=== PATIENT | male | born 1965 | race Caucasian/White ===

== ENCOUNTER 2020-11-11 09:15 | Outpatient (CLI) | payer BC | END 2020-11-11 09:16 | disposition home or self-care (01) | LOC: CSHMRI 09:15 | PROVIDERS: ATTEND Otolaryngology Plastic Surgery within the Head & Neck | DX: H91.21 Sudden idiopathic hearing loss, right ear (principal); G51.9 Disorder of facial nerve, unspecified | CPT/HCPCS: 70553 ==

== ENCOUNTER 2022-10-29 09:53 | Outpatient (CLI) | payer BC ==
[2022-10-29] MEDS ORDERED: Iopamidol 370 76% 100 ML VIAL ONE (15:20)
== END 2022-10-29 09:54 | disposition home or self-care (01) ==
LOC: CSHCT 09:53
PROVIDERS: ATTEND Nurse Practitioner Family
DX: R10.32 Left lower quadrant pain (principal); K57.30 Diverticulosis of large intestine without perforation or abscess without bleeding; N40.0 Benign prostatic hyperplasia without lower urinary tract symptoms; K63.9 Disease of intestine, unspecified
CPT/HCPCS: 74177; Q9967